=== PATIENT | female | born 1970 | race African-American/Black ===

== ENCOUNTER 2018-12-26 08:22 | Day surgery (SDC) | payer OTHER ==
[2018-12-19 09:49] LABS: HEMATOCRIT 36.5 % (36.0-47.0); HEMOGLOBIN 11.3 g/dL (12.0-15.5); MEAN CORPUSCULAR HEMOGLOBIN 23.8 pg (27.0-33.4); MEAN CORPUSCULAR VOLUME 77 fl (80-97); PLATELET COUNT 397 10^3/uL (150-450); RED BLOOD COUNT 4.75 10^6/uL (3.72-5.28); WHITE BLOOD COUNT 7.6 10^3/uL (4.0-10.5)
[2018-12-19 09:52] LABS: APPEARANCE,URINE CLEAR; BILIRUBIN,URINE NEGATIVE (NEGATIVE); COLOR,URINE YELLOW; GLUCOSE, URINE NEGATIVE (NEGATIVE); KETONES,URINE NEGATIVE (NEGATIVE); LEUKOCYTE ESTERASE,URINE NEGATIVE (NEGATIVE); NITRITE,URINE NEGATIVE (NEGATIVE); PROTEIN,URINE NEGATIVE (NEGATIVE)
[2018-12-19 10:18] LABS: ANION GAP 12 (5-19); BLOOD UREA NITROGEN 11 mg/dL (7-20); CALCIUM 9.5 mg/dL (8.4-10.2); CARBON DIOXIDE 28 mmol/L (22-30); CHLORIDE 103 mmol/L (98-107); GLUCOSE 107 mg/dL (75-110); POTASSIUM 4.4 mmol/L (3.6-5.0); SODIUM 142.9 mmol/L (137-145)
--- NOTE | 2018-12-19 10:57 | EKG REPORT ---
SEVERITY:- ABNORMAL ECG - SINUS RHYTHM LEFT VENTRICULAR HYPERTROPHY BORDERLINE T ABNORMALITIES, INFERIOR LEADS : Confirmed by: Rodney Rendon MD 19-Dec-2018 10:56:55
[~2018-12-26 08:22] MED LIST: BUPIVACAINE HCL 0.25 % INJ/PF (2.5 MG/1 ML) 30 ML VIAL ONE; CEFAZOLIN 2 GM/D5W RTU 2 GM/50 ML RTUPB IV ONE; CEFAZOLIN 2 GM/D5W RTU 2 GM/50 ML RTUPB IV PRN; GABAPENTIN 300 MG CAPSULE ONE; GABAPENTIN 300 MG CAPSULE PO PRN; LACTATED RINGERS 1000 ML IV PRN; LIDOCAINE 0.5% INJ-PF (5 MG/ML) 50 ML SDV SUBCUT PRN
[2018-12-26] MEDS ORDERED: SUCCINYLCHOLINE CHLORIDE INJ 200 MG/10 ML VIAL ONE (09:51)
[2018-12-26] MEDS ORDERED: NEOSTIGMINE METHYLSULFATE 10 MG/10 ML VIAL ONE (09:51)
[2018-12-26] MEDS ORDERED: GLYCOPYRROLATE 1 MG/5 ML SYRINGE ONE (09:51)
[2018-12-26] MEDS ORDERED: FENTANYL CITRATE INJ/PF 250 MCG/5 ML AMPULE ONE (11:20)
[2018-12-26] MEDS ORDERED: MIDAZOLAM 2 MG/2 ML INJ ONE (11:21)
[2018-12-26] MEDS ORDERED: PROMETHAZINE HCL INJ 25 MG/1 ML VIAL ONE (11:21)
[2018-12-26] MEDS ORDERED: EPHEDRINE SULFATE INJ 50 MG/1 ML AMPULE ONE (11:22)
[2018-12-26] MEDS ORDERED: ONDANSETRON HCL INJ/PF 4 MG/2 ML SDV ONE (11:22)
[2018-12-26] MEDS ORDERED: DEXAMETHASONE SOD PHOSPHATE INJ 4 MG/1 ML VIAL ONE (11:22)
[2018-12-26] MEDS ORDERED: HYDROMORPHONE HCL INJ/PF 2 MG/ML AMPULE ONE (11:22)
[2018-12-26] MEDS ORDERED: ACETAMINOPHEN 1,000 MG/100 ML RTUPB IV ONE (11:23)
[2018-12-26] MEDS ORDERED: PROPOFOL INJ 200 MG/20 ML VIAL IV ONE (11:23)
[2018-12-26] MEDS ORDERED: DIPHENHYDRAMINE HCL 50 MG/ML VIAL IV PRN (12:04)
[2018-12-26] MEDS ORDERED: PROMETHAZINE HCL INJ 25 MG/1 ML VIAL IV PRN ×2 (12:04)
[2018-12-26] MEDS ORDERED: MEPERIDINE HCL/PF INJ 25 MG/1 ML DISP.SYRIN IV PRN (12:04)
[2018-12-26] MEDS ORDERED: FENTANYL CITRATE INJ/PF 100 MCG/2 ML AMPUL IV PRN ×3 (12:04)
[2018-12-26] MEDS ORDERED: MORPHINE SULFATE 10 MG/ML INJ IV PRN (12:04)
[2018-12-26] MEDS ORDERED: VASOPRESSIN INJ 20 UNIT/1 ML VIAL ONE (12:16)
[2018-12-26] MEDS ORDERED: MORPHINE SULFATE 10 MG/ML INJ ONE (12:32)
[2018-12-26] MEDS ORDERED: FENTANYL CITRATE INJ/PF 100 MCG/2 ML AMPUL ONE (14:56)
--- NOTE | 2018-12-26 15:27 | Discharge Summary ---
Discharge Summary (SDC) - Discharge Final Diagnosis: Abnormal uterine bleeding Uterine fibroids Abdominal wall - omental adhesions Date of Surgery: 12/26/18 Discharge Date: 12/26/18 Condition: Good Forms: Post Operative Treatment or Instructions: Robotic assisted, Total laparoscopic: Lysis of adhesion Myomectomies x3 Hysterectomy bilateral salpingectomy Cystoscopy Prescriptions: Ibuprofen [Motrin 800 mg Tablet] 800 mg PO Q8H PRN #30 tab PRN Reason: Pain Scale Of 2 Oxycodone HCl/Acetaminophen [Percocet 5-325 mg Tablet] 1 tab PO ASDIR PRN #25 tab PRN Reason: Pain Scale Of 3 Referrals: BRITTANEY INFANTE MD [NO LOCAL MD] - (Please call YOEL Gamble with clinical concerns ( [phone]) or report to [facility] ER. To arrange your follow up please call Mrs. Burirs at [phone]. ) Discharge Diet: As Tolerated Respiratory Treatments at Home: Deep Breathing/Coughing Discharge Activity: Activity As Tolerated, Balance Activity w/Rest, No Lifting Over 10 Pounds, Pelvic Rest, Slowly Increase Activity, Walk Frequently Home Care Assistance: None Needed Report the Following to Your Physician Immediately: Vomiting, Increase in Pain, Fever over 101 Degrees, Drainage-Foul Smelling, Increased Vaginal Bleed, Large Clots, Wheezing, IV Site Infection Signs, Urinary Infection Signs
[2018-12-26] MEDS ORDERED: ONDANSETRON HCL INJ/PF 4 MG/2 ML SDV IV PRN (15:35)
[2018-12-26] MEDS: OXYCODONE-ACETAMINOPHEN 5-325 MG TABLET PO PRN (22:28)
[2018-12-27] MEDS: OXYCODONE-ACETAMINOPHEN 5-325 MG TABLET PO PRN (09:30)
[2018-12-27 12:16] VITALS: BP 138/82
--- NOTE | 2019-01-30 10:48 | OPERATIVE REPORT E ---
Operative Report NAME: TIMOTHY YELENA : 1970 AGE: 48Y DATE OF SURGERY: 12/26/2018 ROOM: 217 PREOPERATIVE DIAGNOSIS: Abnormal uterine bleeding and fibroid uterus. POSTOPERATIVE DIAGNOSIS: Abnormal uterine bleeding and fibroid uterus. OPERATION: Robotic-assisted total laparoscopic myomectomy, hysterectomy, and bilateral salpingectomy. SURGEON: BRITTANEY INFANTE M.D. ANESTHESIA: General. COMPLICATIONS: None. ESTIMATED BLOOD LOSS: 200 mL. URINE OUTPUT: Clear at the end of the procedure. SPECIMENS: Fibroid uterus, cervix, and bilateral fallopian tubes. FINDINGS: Enlarged uterus with fundal fibroid prominent. Bilateral fallopian tubes and ovaries appear normal. INDICATIONS: This is a 48-year-old female with a history of heavy abnormal irregular bleeding refractory to medical management. After discussing the risks, benefits, and alternatives, including, but not limited to, observation, continued medical management, endometrial ablation, myomectomy, operative hysteroscopy, and open abdominal hysterectomy, and total vaginal hysterectomy, were all discussed with the patient, she elected for the above procedure. PROCEDURE: After the patient was properly consented she was taken to the operating room where general anesthesia was then introduced with endotracheal intubation. She was transferred to a dorsal lithotomy position using adjustable Sean stirrups and prepped and draped in the usual sterile fashion. A surgical time out was held. We began with placement of the VCare uterine manipulator in the typical fashion and placement of a Izaguirre catheter. At this time gloves were changed and I proceeded to the abdomen where 0.25% plain Marcaine local anesthetic was placed supraumbilically. A 12 mm skin incision was made with the scalpel followed by Veress needle introduction into the peritoneal cavity with correct placement ascertained by a drop in CO2 pressure to 2 mmHg. A pneumoperitoneum was established to a pressure of 15 mmHg. A 12 mm bladeless trocar was advanced into the pneumoperitoneum and immediate visualization with the camera demonstrated atraumatic entry. Subsequently we placed two right and one left lateral port following the typical routine of local anesthetic followed by a skin incision followed by placement of a port under direct visualization. These were all 8 mm ports. With all the ports in place the patient was put in steep Trendelenburg position and the robot console was docked, and I scrubbed out and proceeded to the robot operative console. The pelvic anatomy was inspected and the findings were noted above. The ureters were both identified by peristalsis in their usual course at the pelvic brim bilaterally. Dissection was begun over the largest fibroid appearing at the fundus. It was injected with 1:30 dilution of vasopressin to help with hemostasis and also to initiate hydrodissection around the fibroid. The myometrium covering the fibroid was incised with monopolar cautery and the fibroid was dissected out with bipolar cautery using a vessel sealer device. With removal of this larger fibroid the visualization for the hysterectomy was much improved. At this time the round ligament on the right was cauterized and transected. Next, the broad ligament was opened and dissected inferiorly and anteriorly to create a bladder flap, which was reduced. Next, the fallopian tube was dissected from the tubo-ovarian ligament on the right. This dissection was then continued along the lateral portion of the uterine body to connect with the previously transected round ligament. The broad ligament was then opened and the uterine artery was dissected out, identified, cauterized, and transected at the area next to the lower uterine segment. Then, hugging the uterus, the dissection was continued inferiorly along the side of the cervix to the top of the CATRACHITO ring. The same dissection was repeated on the left side. The areas of dissection were noted to be hemostatic. Next, the edge of the VCare cervical cup was identified and the colpotomy was initiated with monopolar scissors and carried around circumferentially until this specimen was free and pulled through the vagina. Next, an Endopouch sac was inserted through the vaginal cuff opening and the fibroid and any debris from the dissection was placed in the bag and removed. The vaginal cuff was then closed with a running V-Loc suture of 2-0 Monocryl incorporating the uterosacral pedicles for support. The pelvis was then irrigated copiously and hemostasis was noted to be excellent. FloSeal hemostatic agent was applied over the cuff. The abdomen was deflated and the robot was undocked as all instruments were removed. The patient was taken out of Trendelenburg, and the fascia of the 12 mm supraumbilical incision was closed with 0-Vicryl suture. The skin of all ports was closed with 4-0 Monocryl in a subcuticular fashion and a Dermabond dressing was applied. The Izaguirre was then removed from the bladder and a sponge stick was used to make sure there was no heavy bleeding vaginally. Hemostasis was excellent on the vaginal cuff. Anesthesia was then reversed. Sponge, lap, and needle counts were correct at the end of the procedure and the patient was taken to the PACU in stable condition. DICTATING PHYSICIAN: BRITTANEY INFANTE M.D. [id number] PHY#: [id number] ID: [id number] JOB#: [id number] ACCT: [id number] cc:BRITTANEY INFANTE M.D. >
== END 2018-12-27 14:20 | disposition home or self-care (01) ==
LOC: OROUT 08:22 → EDSTATUS 10:30 → 2S 17:39 → OROUT 12-27 14:20
PROVIDERS: ATTEND Obstetrics & Gynecology
DX: N72 Inflammatory disease of cervix uteri (principal); D25.9 Leiomyoma of uterus, unspecified; N83.8 Other noninflammatory disorders of ovary, fallopian tube and broad ligament; N93.9 Abnormal uterine and vaginal bleeding, unspecified; E11.9 Type 2 diabetes mellitus without complications; E78.00 Pure hypercholesterolemia, unspecified; D64.9 Anemia, unspecified; E66.9 Obesity, unspecified; Z68.34 Body mass index [BMI] 34.0-34.9, adult; Z88.2 Allergy status to sulfonamides
CPT/HCPCS: 93010; 93005; 86900; 86901; 36415 ×2; 86850; 82962; 85027; 81025; 80048; 81001; 88307 ×2; 58573; J2250; J1100; J3010; J2270; J1170; J2550; J0330; J2405; J3490 ×2; J2704; J0690; J0131; S2900; 840